=== PATIENT | female | born 1990 | race Caucasian/White ===

== ENCOUNTER → 2022-08-01 | Outpatient (CLI) | payer OTHER ==
--- NOTE | 2022-08-02 06:30 | MR ---
EXAMINATION TYPE: MR brain wo/w con DATE OF EXAM: 08/01/2022 COMPARISON: NONE HISTORY: Migraines TECHNIQUE: Multiplanar, multisequence images of the brain and brainstem is performed without and with IV contras t, utilizing 11 mL intravenous Gadavist . FINDINGS: Diffusion weighted images demonstrate no evidence of a recent infarct or other diffusion ab normality. There is no extra-axial fluid collection or significant white matter signal abnormality. The ventricular system and cisternal spaces are normal in size and appearance. The brain volume is age appropriate. Midline structures demonstrate normal morphology. The craniocervical junction appears within normal limits. Post contrast images demonstrate no abnormal enhancement. The dural venous sinuses appear pa tent. The visualized sinuses are clear and the globes are intact. IMPRESSION: Unremarkable study.
== END | disposition home or self-care (01) ==
LOC: RADMRIMAIN 19:17
PROVIDERS: ATTEND Family Medicine
DX: G43.009 Migraine without aura, not intractable, without status migrainosus (principal)
CPT/HCPCS: 70553; A9585

== ENCOUNTER → 2022-08-18 | Outpatient (CLI) | payer OTHER ==
--- NOTE | 2022-08-18 15:36 | P.SLEEP ---
History of Present Illness DATE: 08/18/2022 CONSULTATION/NEW PATIENT EVALUATION HISTORY OF PRESENT ILLNESS/SLEEP-WAKE EVALUATION: 31year old lady had been evaluated in the sleep center for excessive daytime sleepiness and possible obstructive sleep apnea hypopnea syndrome. SLEEP SCHEDULE: Usually sleep schedule on weekdays from 10:30 PM until 9 AM, du days off from 11 PM until 9:30 AM. FALLING ASLEEP: Sometimes patient has problems with falling asleep, has TV set in bedroom. DURING SLEEP: No clear history of snoring according to family. Patient wakes up from sleep up to 3 times with 2 episodes of nocturia. Positive history of choking while sleep on the back position. Patient sleeps usually on the side. No history of hypnogogical hallucinations, sleep paralysis, or cataplexy. DURING THE DAY/WAKE STATE: In the morning patient wake up tired, has difficulties to place attention, falling asleep during the day. Patient has problems with memory, concentration, irritability, depression and anxiety. [place] sleepiness scale is 8. Patient may take 1 nap at different time. She drinks up to 3 caffeinated beverages during the day. Positive history of vivid dreams during naps. PAST MEDICAL HISTORY: Hypertension, depression, migraines, diabetes mellitus, hyperlipidemia, acid reflux, hypothyroidism. PAST SURGICAL HISTORY: Cholecystectomy, ovary cyst removed, tonsillectomy and adenoidectomy. MEDICATIONS: Metformin 500 mg twice a day, omeprazole 20 mg twice a day, atorvastatin 40 mg once a day, Cozaar 100 mg once a day, levothyroxine 125 g once a day, Januvia 100 mg once a day, topiramate 50 mg twice a day, Abilify 5 mg at bedtime, hydrochlorothiazide 25 mg once a day, Zoloft 150 mg once a day, insulin, Pamelor 10 mg at bedtime. SOCIAL HISTORY: Negative for smoking, alcohol consumption none. FAMILY HISTORY: Hypertension, heart problems, stroke, sleep apnea, thyroid problems, mental illness. REVIEW OF SYSTEMS: Multiple awakenings from sleep, sleepiness during the day. No fevers. No double vision. No recent chest pain. No shortness of breath. No abdominal pain. No bleeding episodes. No blood in urine. No seizure episodes. PHYSICAL EXAMINATION: GENERAL: A pleasant patient without any distress. VITAL SIGNS: BP 143/84 , HR 106 , RR 16 , weight 243.8 pounds, height 5 foot 7 inches, body mass index 38 . HEENT: PERRLA, EOMI. Evaluation of oropharynx showed tongue protrudes midline, low position of soft palate Mallampati 4. NECK: Supple. No JVD. Thyroid is not palpable. 17-1/4 inches in circumference. LUNGS: Clear to percussion and to auscultation. Good air exchange. No wheezing or rhonchi. HEART: S1, S2 regular. No murmurs, gallops or rubs. ABDOMEN: Soft and nontender. Bowel sounds are present. No organomegaly appreciated. Obese EXTREMITIES: No clubbing or cyanosis. MULTIPLE PUNCH PRESS OPERATOR: Awake, alert, and oriented x3. Cranial nerves 2 to 7 intact. There is no fasciculation or atrophy noted. No focal deficits observed. ASSESSMENT: 1. Multiple awakenings from sleep, extremely low position of soft palate Mallampati 4, wide neck 17-1/4 inches in circumference, sleepiness, episodes of choking while sleep on the back. Possible obstructive sleep apnea- hypopnea syndrome.. 2. Sleepiness. According to patient may sleep at any time. Positive history of vivid dreams during naps. Differential diagnosis would include hypersomnia.. 3 obesity body mass index 38.0. 4. Hypertension. 5 diabetes mellitus. 6. Depression. 7. Migraines. 8. Hyperlipidemia. 9. Acid reflux. 10. Hypothyroidism. 11. Status post tonsillectomy and adenoidectomy. 12 status post cholecystectomy. 13 status post ovary cyst removed in May 2021. PLAN: 1. Polysomnography for evaluation of patient's breathing during sleep. Multiple sleep latency test on the following day if sleep study is negative for obstructive sleep apnea hypopnea syndrome. 2. CPAP/BiPAP titration if sleep study confirms obstructive sleep apnea- hypopnea syndrome. 3. Preferable position during sleep on the side. 4. No driving if patient feels any sleepiness. Patient is aware of civil and criminal liability for unsafe driving. 5. Sleep hygiene with regular sleep time for at least 7.5-8 hours. 6. Watching and losing weight. Thank you very much for referring this patient for consultation. Sincerely, Micky Anderson MD, PhD, FAASM. Diplomat of [place] [employer], Sleep Medicine Board by [employer] [employer] Program Specialist of [facility] [place] [facility] Note - Sleep Note Sleep Note: Temperature: Pulse Rate: Respiratory Rate: Blood Pressure: SpO2: Height: Weight: BMI: Neck Circumference:
== END ==
LOC: SLEEP 14:52
PROVIDERS: ATTEND Internal Medicine
DX: G47.33 Obstructive sleep apnea (adult) (pediatric) (principal); I10 Essential (primary) hypertension; Z99.89 Dependence on other enabling machines and devices; E11.9 Type 2 diabetes mellitus without complications; F32.A Depression, unspecified; G43.909 Migraine, unspecified, not intractable, without status migrainosus; E78.5 Hyperlipidemia, unspecified; K21.9 Gastro-esophageal reflux disease without esophagitis; E03.9 Hypothyroidism, unspecified; Z90.89 Acquired absence of other organs; Z90.49 Acquired absence of other specified parts of digestive tract; Z90.721 Acquired absence of ovaries, unilateral; Z79.84 Long term (current) use of oral hypoglycemic drugs; Z79.85 Long-term (current) use of injectable non-insulin antidiabetic drugs; Z79.890 Hormone replacement therapy
CPT/HCPCS: 99211

== ENCOUNTER → 2022-10-13 | Outpatient (CLI) | payer OTHER ==
--- NOTE | 2022-10-13 11:49 | P.PN ---
Subjective DATE: 10/12/2022 FOLLOW UP VISIT. Patient returned to sleep center for follow-up visit to discuss results of sleep studies and following plan. Patient had polysomnogram with the falling multiple sleep latency test and I discuss results of sleep studies with patient and family in details. Polysomnogram did not show significant respiratory abnormalities. Normal oxygenation during sleep. Mild abnormalities of respiration REM sleep, but REM sleep was present only one time at the very and of the sleep study. A multiple sleep latency test confirmed sleepiness mean sleep latency was short 4.8 minutes, no sleep onset REM periods have been documented. Heart rate during the whole period of sleep study was high with maximal rate 127, minimal 95 and average around 116, sinus tachycardia. Ruffin sleepiness scale is 9 today, which is borderline. MEDICATIONS:1. Metformin 500 mg twice a day 2. Omeprazole 20 mg twice a day 3. Atorvastatin 40 mg once a day 4. Cozaar 100 mg once a day 5. Levothyroxine 125 g once a day 6. Topiramate 50 mg twice a day 7. Abilify 5 mg once a day 8. Zoloft 150 mg once a day Lantus During physical exam: GENERAL: A pleasant patient without any distress. VITAL SIGNS: BP 119/78, HR 124, RR 16 , weight 243, temperature 97.9, oxygen saturation at room air 98% . HEENT: PERRLA, EOMI. NECK: Supple. No JVD. LUNGS: Clear to percussion and to auscultation. Good air exchange. No wheezing or rhonchi. HEART: S1, S2 regular, tachycardia.. ABDOMEN: Soft and nontender. EXTREMITIES: No clubbing or cyanosis. HAUNTED HISTORY TOUR GUIDE: Awake, alert, and oriented x3. No focal deficit. Impressions: 1. Sinus tachycardia during wake and sleep in high range. 2. No significant respiratory abnormalities during the sleep study. Normal oxy genation during the sleep.. 3. No significant periodic limb movements. 4. Multiple sleep latency test confirmed sleepiness. Mean sleep latency short 4.8 minutes. No sleep onset REM periods. Possibly narcolepsy without cataplexy, although again no sleep onset REM periods have been documented. Decreasing of REM sleep could related to medications. 5. Hypertension. 6. Diabetes mellitus. 7. Depression. 8. Migraines. 9. Hyperlipidemia. 10 acid reflux Plan: 1. Consider evaluation by assistant professor of psychology for tachycardia. 2. Sleep hygiene with regular time in bed for at least 8 hours. 3. Daytime naps permitted 4. Precautions related to driving. No driving if feel any sleepiness. Patient is aware about civil and criminal liability for unsafe driving, promised to follow recommendations. 5. We will consider to start patient on medication to prevent sleepiness after her heart rate will be normalized. Medications for improving, alertness may increase heart rate. Thank you very much for allowing me to participate in the management of your patient. Micky Anderson MD, PhD, FAASM. Diplomat of [place] [employer], Sleep Medicine Board by [place] [employer] Double Bass Player [facility] [place]
== END ==
LOC: SLEEP 11:04
PROVIDERS: ATTEND Internal Medicine
DX: G43.909 Migraine, unspecified, not intractable, without status migrainosus (principal); R00.0 Tachycardia, unspecified; I10 Essential (primary) hypertension; E11.9 Type 2 diabetes mellitus without complications; F32.A Depression, unspecified; E78.5 Hyperlipidemia, unspecified; K21.9 Gastro-esophageal reflux disease without esophagitis
CPT/HCPCS: 99212

== ENCOUNTER → 2022-11-09 | Outpatient (CLI) | payer OTHER ==
--- NOTE | 2022-11-14 11:16 | CE ---
CARDIAC ELECTROPHYSIOLOGY REPORT STUDY PERFORMED: A 24-hour monitor. INDICATION: Rule out cardiac arrhythmia. The patient was monitored for 24 hours. The baseline rhythm appeared to be sinus mechanism. Minimum heart rate was 93 beats per minute and maximum heart rate was 141 beats per minute and average heart rate was 110 beats per minute. Ventricular ectopic events presented in 6.48% of the total beats count and presented mainly as PVC with no runs of nonsustained ventricular tachycardia. Supraventricular ectopic events presented in 0% of the total beats count. No significant sinus pause or sinus arrest seen. CONCLUSION: 1. This is a 24-hour Holter monitor. 2. Sinus rhythm with sinus tachycardia as a baseline rhythm. 3. Sinus tachycardia overall with an average heart rate of 110 beats per minute. 4. Frequent ventricular ectopic events presented and presented as 6.48%. 5. No significant sinus pause or sinus arrest identified. 6. No other significant arrhythmia noted as well. MMODL / IJN: [id number] /
== END | disposition home or self-care (01) ==
LOC: RADECHMAIN 07:47
PROVIDERS: ATTEND Family Medicine
DX: I49.3 Ventricular premature depolarization (principal); R00.0 Tachycardia, unspecified
CPT/HCPCS: 93225; 93226